=== PATIENT | male | born 1995 | race Caucasian/White ===

== ENCOUNTER 2019-06-30 18:31 | Emergency (ER) | payer SELFPAY ==
[~2019-06-30] VITALS: Ht 182.9 cm; Wt 71.8 kg
[2019-06-30 18:58] VITALS: BP 124/67; TEMP 98.8
[2019-06-30 20:40] LABS: CALCIUM 9.1 mg/dL (8.4-10.2); CREATININE, serum 0.98 (0.66-1.25); POTASSIUM 3.8 mmol/L (3.4-5.0)
[2019-06-30 20:41] LABS: BASO % 0.4 % (0.0-2.0); EOS # 0.2 (0.0-0.7); EOS % 2.1 % (0-4.0); GRAN # 5.1 (1.4-6.5); GRAN % 68.2 % (42.2-75.2); HEMATOCRIT 44.1 % (42.0-52.0); HEMOGLOBIN 15.2 g/dl (13.5-18.0); LYMPH # 1.8 (1.2-3.4); LYMPH % 23.6 % (20.0-51.0); MEAN CELL VOLUME 92 fl (80.0-100.0); MEAN CORPUSCULAR HEMOGLOBIN 32 pg (27.0-31.0); MEAN CORPUSCULAR HGB CONC 35 g/dl (33.0-37.0); MEAN PLATELET VOLUME 11.2 fl (7.4-10.4); MONO # 0.4 (0.1-0.6); MONO % 5.6 % (1.7-9.3); PLATELET COUNT 155 K/mm3 (130-400); RED BLOOD COUNT 4.82 M/mm3 (4.20-5.60); REDCELL DISTRIBUTION WIDTH-CV 12.1 % (11.5-14.5)
[2019-06-30 20:57] LABS: HIV 1/2 Antibodies Non-Reactive; HIV-1p24 Antigen Non-Reactive
[2019-06-30 21:19] LABS: COLLECTION METHOD CLEAN CATCH
[2019-06-30 21:38] LABS: MUCOUS Present /lpf; PH 6 (5-8); SQUAMOUS EPITHELIAL None Seen /hpf; URINE APPEARANCE Clear; URINE BACTERIA None Seen /hpf; URINE BILIRUBIN Negative (NEGATIVE); URINE BLOOD Negative (NEGATIVE); URINE COLOR Yellow; URINE GLUCOSE Negative (NEGATIVE); URINE KETONE Negative (NEGATIVE); URINE LEUKOCYTE ESTERASE Negative (NEGATIVE); URINE NITRATE Negative (NEGATIVE); URINE PROTEIN(semi-quant) Negative (NEGATIVE); URINE RBC 0-2 /hpf
[2019-06-30 22:08] VITALS: PULSE 80
== END 2019-06-30 22:08 | disposition home or self-care (01) ==
LOC: COL.ER 18:31
PROVIDERS: Physician Assistant
DX: Z71.1 Person with feared health complaint in whom no diagnosis is made (principal); F17.210 Nicotine dependence, cigarettes, uncomplicated

== ENCOUNTER 2019-07-19 14:51 | Emergency (ER) | payer SELFPAY ==
[~2019-07-19] VITALS: Ht 182.9 cm; Wt 70.9 kg
[2019-07-19] MEDS ORDERED: AMOXICILLIN 8751 TAB PO (17:01)
[2019-07-19] MEDS ORDERED: NORCO 325 MG-51 TAB PO (17:01)
[2019-07-19 18:00] VITALS: BP 118/70; PULSE 90
== END 2019-07-19 18:00 | disposition home or self-care (01) ==
LOC: COL.ER 14:51
DX: S02.609A Fracture of mandible, unspecified, initial encounter for closed fracture (principal); S02.2XXA Fracture of nasal bones, initial encounter for closed fracture; S01.81XA Laceration without foreign body of other part of head, initial encounter; H11.32 Conjunctival hemorrhage, left eye; F17.210 Nicotine dependence, cigarettes, uncomplicated; R40.2410 Glasgow coma scale score 13-15, unspecified time; Z23 Encounter for immunization; Y04.2XXA Assault by strike against or bumped into by another person, initial encounter
CPT/HCPCS: J0295; J2270

== ENCOUNTER 2019-07-22 18:08 | Emergency (ER) | payer SELFPAY ==
[~2019-07-22] VITALS: Ht 182.9 cm; Wt 69.9 kg
[~2019-07-22 18:08] MED LIST: AMOXICILLIN 8751 TAB PO; NORCO 325 MG-51 TAB PO
[2019-07-22 18:15] VITALS: BP 124/69; TEMP 98.6
[2019-07-22] MEDS ORDERED: NORCOELIX PO (18:59)
[2019-07-22 19:03] VITALS: PULSE 72
== END 2019-07-22 19:03 | disposition home or self-care (01) ==
LOC: COL.ER 18:08
DX: R68.84 Jaw pain (principal); F17.210 Nicotine dependence, cigarettes, uncomplicated; Z76.0 Encounter for issue of repeat prescription; Z98.890 Other specified postprocedural states

== ENCOUNTER 2019-10-07 20:04 | Emergency (ER) | payer SELFPAY ==
[~2019-10-07] VITALS: Ht 180.3 cm; Wt 68.2 kg
[~2019-10-07 20:04] MED LIST changes: +NORCOELIX PO
[2019-10-07 20:21] VITALS: BP 115/56; PULSE 77; TEMP 97.8
[2019-10-07] MEDS ORDERED: NORCO 325 MG-51 TAB PO (22:46)
== END 2019-10-07 23:02 | disposition home or self-care (01) ==
LOC: COL.ER 20:04
DX: S02.69XA Fracture of mandible of other specified site, initial encounter for closed fracture (principal); F17.210 Nicotine dependence, cigarettes, uncomplicated; Y04.2XXA Assault by strike against or bumped into by another person, initial encounter

== ENCOUNTER 2019-10-23 20:53 | Emergency (ER) | payer SELFPAY ==
[~2019-10-23] VITALS: Ht 180.3 cm; Wt 75.4 kg
[2019-10-23 20:56] VITALS: BP 142/99; PULSE 108; TEMP 99.4
== END 2019-10-23 21:40 | disposition left against medical advice (07) ==
LOC: COL.ER 20:53
DX: R68.84 Jaw pain (principal); Z98.890 Other specified postprocedural states; Z72.0 Tobacco use